=== PATIENT | female | born 1950 | race Caucasian/White ===

== ENCOUNTER 2022-12-02 09:00 | Outpatient (RCR) | payer MEDICARE, BC, SELFPAY | END 2022-12-15 11:44 | disposition home or self-care (01) | PROVIDERS: Visit Provider Nurse Practitioner Family | DX: M54.32 Sciatica, left side (principal); Z51.89 Encounter for other specified aftercare | CPT/HCPCS: 97012; 97110; 97140; 97161; 97535 ==